=== PATIENT | male | born 1935 | race Caucasian/White ===

== ENCOUNTER 2017-04-28 11:20 | Emergency (ER) | payer MEDICARE ==
[~2017-04-28] VITALS: Ht 180.3 cm; Wt 79.4 kg
[~2017-04-28 11:20] MED LIST: ANTI DIARRHEAL; ASCO100065 PO; CITA20TA9 PO; CRESTOR10 MG PO; DONE10TA61 PO; METO25TA2 PO; OMEP40CA2 PO; POTA20TA12 PO; RIVA10TA PO
--- NOTE | 2017-04-28 11:56 | PHYS DOC ---
Past History Past Medical History: GERD, High Cholesterol, Hypertension, Other Past Surgical History: Other Smoking: Non-smoker Alcohol Use: Occasionally Drug Use: None Adult General Chief Complaint Chief Complaint: LACERATION/AVULSION HPI HPI 81-year-old male patient with history of mild dementia and pulmonary embolism on Xarelto had an accidental fall from a standing position at 3:30 AM and was going to the bathroom. Patient had a laceration of right side of his face that did not stop bleeding and after calling his primary care physician office recommended to come to the emergency room. Patient denies loss of consciousness and other injuries, nausea and vomiting, focal neuro deficit. Patient tolerated oral intake and ambulated without problem. Review of Systems Review of Systems Constitutional: Denies fever or chills [] Eyes: Denies change in visual acuity, redness, or eye pain [] HENT: Denies nasal congestion or sore throat [] Respiratory: Denies cough or shortness of breath [] Cardiovascular: No additional information not addressed in HPI [] GI: Denies abdominal pain, nausea, vomiting, bloody stools or diarrhea [] : Denies dysuria or hematuria [] Musculoskeletal: Denies back pain or joint pain [] Integument: Denies rash or skin lesions, reports laceration [] Neurologic: Denies headache, focal weakness or sensory changes [] Endocrine: Denies polyuria or polydipsia [] All other systems were reviewed and found to be within normal limits, except as documented in this note. Allergies Allergies Allergies Coded Allergies Type Severity Reaction Last Updated Verified No Known Drug Allergies 01/31/15 No Physical Exam Physical Exam Constitutional: Well nourished, mild distress, non-toxic appearance. [] HENT: Normocephalic, bilateral external ears normal, oropharynx moist, no oral exudates, nose normal, Y-shaped laceration in right side of face lateral side of forehead above eyebrow with mild active bleeding, mild raccoon eyes] Eyes: PERRLA, EOMI, conjunctiva normal, no discharge. [] Neck: Normal range of motion, no tenderness, supple, no stridor. [] Cardiovascular:Heart rate regular rhythm, no murmur [] Lungs & Thorax: Bilateral breath sounds clear to auscultation [ Abdomen: Bowel sounds normal, soft, no tenderness, no masses, no pulsatile masses. [] Skin: Warm, dry, no erythema, no rash. [] Back: No tenderness, no CVA tenderness. [] Extremities: No tenderness, no cyanosis, no clubbing, ROM intact, no edema. [] Neurologic: Alert and oriented X 3, normal motor function, normal sensory function, no focal deficits noted. [] Current Patient Data Vital Signs Vital Signs Date Time Temp Pulse Resp B/P (MAP) Pulse Ox O2 Delivery O2 Flow Rate FiO2 04/28/17 11:42 97.5 50 18 96 Room Air EKG EKG [] Radiology/Procedures Radiology/Procedures [] Course & Med Decision Making Course & Med Decision Making Pertinent Imaging studies reviewed. (See chart for details) Evaluation of patient in ER showed 81-year-old male patient with a fall several hours ago patient laceration with bleeding. Patient taking Xarelto. Facial laceration was treated with Dermabond and Steri-Strip with well controlled of bleeding. CT head and cervical spine did not show acute problem. Patient ambulated without problem. Patient instructed to follow up with his primary care physician. Dragon Disclaimer Dragon Disclaimer This electronic medical record was generated, in whole or in part, using a voice recognition dictation system. Departure Departure: Impression: Primary Impression: Facial laceration Additional Impressions: Fall at home Facial contusion Disposition: HOME, SELF-CARE (At 1245) Condition: IMPROVED Referrals: ROBERT AYALA MD (PCP) Patient Instructions: Head Injury, Adult, Tissue Adhesive Wound Care Additional Instructions: Follow-up with your primary care physician in 3-5 days Return to ER if not getting better Laceration Repair Lac Repair Indication: [Right forehead laceration] Procedure: The patient was placed in the appropriate position. After cleaning the wound tissue glue was applied with well controlled bleeding and closing the wound. The wound area was then dressed with steri strip Total repaired wound length: [3 cm]. Other Items: [OTHER ITEMS] The patient tolerated the procedure well. Complications: [none. Problem Qualifiers CYRIL JADE MD Apr 28, 2017 11:56
--- NOTE | 2017-04-28 12:41 | RAD ---
CT head and cervical spine without contrast 04/28/2017 Clinical indication: Fall. Comparison: CT head 01/31/2015 Technique: Multiple CT images of the head and cervical spine were obtained without contrast. RS Compliance Statement: One or more of the following individualized dose reduction techniques were utilized for this examination: 1. Automated exposure control 2. Adjustment of the mA and/or kV according to patient size 3. Use of iterative reconstruction technique Findings: Head: No acute intracranial hemorrhage or extra-axial fluid collection. No midline shift. There is mild prominence of the ventricles and subarachnoid spaces compatible with mild generalized cerebral and cerebellar atrophy. There is periventricular and deep white matter low attenuation. The basal cisterns are patent. The visualized mastoid air cells and paranasal sinuses are well aerated. Cervical spine: There is diffuse bony demineralization. There is normal cervical alignment with mild left convexity spinal curvature which may be positional. Vertebral body heights are maintained. No acute cervical spine fracture or traumatic malalignment identified. Moderate atlantodens arthrosis with osteophytic spurring. Calcified atheromatous disease at the carotid bulbs. There is a 1.0 cm hypodense nodule in the right lobe of the thyroid gland. There is multilevel cervical disc degeneration with disc space narrowing, endplate sclerosis and marginal osteophyte formation. In conjunction with uncovertebral and facet hypertrophy results in multilevel neural foraminal narrowing to a moderate degree on the right at C3-C4, moderate degree bilaterally at C5-C6 and moderate degree bilaterally at C6-C7. Right central posterior disc osteophyte complexes at C3-C4 and C5-C6 results in at least mild spinal canal narrowing. Impression: Head: 1. No acute intracranial hemorrhage. 2. Mild generalized cerebral and cerebellar atrophy. 3. Mild nonspecific white matter disease, likely related to chronic small vessel ischemic disease. Cervical spine: 1. No acute cervical spine fracture or subluxation. 2. Cervical spondylosis resulting in multilevel neural foraminal and spinal canal narrowing, as detailed above.
[2017-04-28 12:56] VITALS: BP 101/50
== END 2017-04-28 12:55 | disposition home or self-care (01) ==
LOC: ER 11:20
DX: S01.81XA Laceration without foreign body of other part of head, initial encounter (principal); E78.00 Pure hypercholesterolemia, unspecified; I10 Essential (primary) hypertension; K21.9 Gastro-esophageal reflux disease without esophagitis; F03.90 Unspecified dementia, unspecified severity, without behavioral disturbance, psychotic disturbance, mood disturbance, and anxiety; Z86.711 Personal history of pulmonary embolism; W19.XXXA Unspecified fall, initial encounter; Y93.01 Activity, walking, marching and hiking; Y99.8 Other external cause status; Y92.002 Bathroom of unspecified non-institutional (private) residence as the place of occurrence of the external cause
CPT/HCPCS: 12013; 70450; 72125; 99284-25

== ENCOUNTER 2017-05-07 21:43 | Emergency (ER) | payer MEDICARE ==
[~2017-05-07] VITALS: Ht 182.9 cm; Wt 81.6 kg
[2017-05-07 22:32] LABS: POTASSIUM ISTAT 4.4 mmol/L (3.5-5.0)
--- NOTE | 2017-05-07 22:39 | RAD ---
PQRS Compliance Statement: One or more of the following individualized dose reduction techniques were utilized for this examination: 1. Automated exposure control 2. Adjustment of the mA and/or kV according to patient size 3. Use of iterative reconstruction technique CT head and cervical spine without contrast 05/07/2017 10:14 PM INDICATION: Fall and hit right side of the head. On Xarelto with worsening headache. Upper neck pain. COMPARISON: CT head and cervical spine April 28, 2017 TECHNIQUE: Multiple axial CT images of the head were obtained from skull base through the vertex without intravenous contrast. Multiple axial CT images of the cervical spine were obtained without intravenous contrast. Coronal and sagittal reformats are provided. FINDINGS: Head: Ventricles, sulci and basal cisterns are mildly prominent compatible with age-related degenerative changes. Low-attenuation in the periventricular white matter is compatible with chronic small vessel ischemic changes. 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 There is no hydrocephalus. Villafuerte-white matter differentiation is normal. There is no acute intracranial hemorrhage. There is no mass, mass effect or midline shift. Posterior fossa is normal in appearance. Visualized portions of the orbits are normal. Minimal mucosal thickening of the left maxillary sinus is noted. Mastoid air cells are well aerated. Scalp and calvaria are normal. Cervical spine: Alignment of the cervical spine is normal. Skull base is intact. Craniocervical junction is normal in appearance. Atlantoaxial articulation is normal. Vertebral body heights are maintained without evidence for acute fracture. Degenerative changes are noted at the atlantoaxial articulation. There is disc height loss at all levels of the cervical spine, most prominent at C5-C6. There is osseous fusion of the facet joints at C2-C3 on the left. There is advanced facet arthropathy on the right at C4-C5 and C7-T1. There is advanced facet arthropathy on the left at C3-C4. There is moderate to advanced uncovertebral joint disease most prominent at C5-C6. There is a posterior disc osteophyte complex at C3-C4, asymmetric to the right with moderate right facet arthropathy resulting in severe right neuroforaminal stenosis and mild spinal canal stenosis. At C5-C6 and C6-C7, there is a posterior disc osteophyte complex with facet and uncovertebral joint arthropathy resulting in severe bilateral neuroforaminal stenosis and mild spinal canal stenosis. There is no prevertebral soft tissue swelling. There is a 9 mm nodule in the inferior right thyroid lobe. Visualized portions of the lung apices are normal without evidence for suspicious pulmonary nodule or infiltrate. IMPRESSION: 1. No acute intracranial hemorrhage. Mild cerebral parenchymal volume loss with low attenuation in the periventricular white matter compatible with chronic small vessel ischemic changes. 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 2. No acute fracture or malalignment of the cervical spine. Moderate cervical spondylosis is present, as detailed above. Findings are not significantly changed since prior examination. Electronically signed by: Anita Castellon MD (05/07/2017 10:35 PM) [facility]
--- NOTE | 2017-05-07 23:08 | PHYS DOC ---
General Chief Complaint: Neck Pain Stated Complaint: STIFF NECK FROM FALL Time Seen by MD: 21:52 Source: patient, family Exam Limitations: no limitations Problems: History of Present Illness Initial Comments Patient is an 82-year-old male brought to the ED by his and daughter for neck pain. Patient and family state that for the past 3 days he has had worsening neck pain and stiffness. The pain is described as severe and sharp, patient states that he has great difficulty with any range of motion at the neck or head. His primary pain complaints are at the OA junction and he's been having headaches intermittently associated with the neck pains today. He denies any focal neurologic deficits no new weakness vision changes or other asymmetry. Patient is on xarelto to chronically for prior PE. Patient was seen at this emergency department April 28 after a fall injury. At 3:30 in the morning the patient fell trying to go to the restroom and suffered a right sided facial laceration. CT of the head and cervical spine were normal at that time and the patient left the department ambulatory. The patient is normally ambulatory without assistive device but with the neck pain onset he has been using a walker. The patient has intermittent twinges of pain which cause him to wince and tear up, he is in obvious discomfort when the spasms occur. He moves very gingerly and slowly and on ED arrival after reviewing his history I advised the patient that CT head and cervical spine was indicated he and his family are in agreement. Patient's spouse states that she's been trying to reach his primary care physician as she wanted to get a muscle relaxer for him but has been unable to reach the patient's doctor. Timing/Duration: other Severity: severe Modifying Factors: worse with movement Associated Symptoms: headaches, other Allergies: Coded Allergies: No Known Drug Allergies (Unverified , 01/31/15) Past Medical History Medical History: other (GERD, hyperlipidemia, hypertension, PE, dementia, bladder cancer,) Surgical History: other (left hip, AAA) Family History Significant Family History: no pertinent family hx Social History Smoker: non-smoker Alcohol: none Drugs: none Review of Systems Constitutional: denies chills, denies diaphoresis, denies fever, denies malaise , denies weakness EENTM: denies eye pain, denies blurred vision, denies double vision, denies ear discharge, denies nose congestion, denies throat pain, denies throat swelling, denies mouth pain, denies mouth swelling Respiratory: denies cough, denies shortness of breath, denies wheezing Cardiovascular: denies chest pain, denies palpitations, denies syncope Gastrointestinal: denies abdominal pain, denies nausea, denies vomiting Musculoskeletal: see HPI Psychiatric/Neurological: see HPI Hematologic/Lymphatic: see HPI Physical Exam General Appearance: moderate distress (moves very slowly delicately and gingerly, has intermittent severe twinges of pain) Ear, Nose, Throat: hearing grossly normal, normal ENT inspection, normal pharynx Neck: other (trapezius muscle hypertonicity and tenderness left greater than right, left sided scalene and sternocleidomastoid muscle hypertonicity and tenderness as well. No midline or bony tenderness or palpable deformity/ malalignment. No swelling ecchymosis or palpable muscle deficit/defect) Respiratory: normal breath sounds, no respiratory distress Cardiovascular: normal peripheral pulses, regular rate, rhythm Back: no CVA tenderness, no vertebral tenderness Neurologic/Psychiatric: procedure writer II-XII nml as tested, no motor/sensory deficits, alert, normal mood/affect, oriented x 3 Skin: normal color, warm/dry Orders, Labs, Meds PATIENT: DAPHNE AMADO ACCOUNT: [id number] : 1935 LOCATION: ER AGE: 82 SEX: M EXAM STATUS: PRE ER ORD. PHYSICIAN: ROSEMARY FORD DO REASON: fall 04/28 head injury/xarelto, worsening SANTA/upper neck and OA marcin PROCEDURE: CT HEAD AND CERVICAL SPINE WO PQRS Compliance Statement: One or more of the following individualized dose reduction techniques were utilized for this examination: 1. Automated exposure control 2. Adjustment of the mA and/or kV according to patient size 3. Use of iterative reconstruction technique CT head and cervical spine without contrast 05/07/2017 10:14 PM INDICATION: Fall and hit right side of the head. On Xarelto with worsening headache. Upper neck pain. COMPARISON: CT head and cervical spine April 28, 2017 TECHNIQUE: Multiple axial CT images of the head were obtained from skull base through the vertex without intravenous contrast. Multiple axial CT images of the cervical spine were obtained without intravenous contrast. Coronal and sagittal reformats are provided. FINDINGS: Head: Ventricles, sulci and basal cisterns are mildly prominent compatible with age-related degenerative changes. Low-attenuation in the periventricular white matter is compatible with chronic small vessel ischemic changes. 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 There is no hydrocephalus. Villafuerte-white matter differentiation is normal. There is no acute intracranial hemorrhage. There is no mass, mass effect or midline shift. Posterior fossa is normal in appearance. Visualized portions of the orbits are normal. Minimal mucosal thickening of the left maxillary sinus is noted. Mastoid air cells are well aerated. Scalp and calvaria are normal. Cervical spine: Alignment of the cervical spine is normal. Skull base is intact. Craniocervical junction is normal in appearance. Atlantoaxial articulation is normal. Vertebral body heights are maintained without evidence for acute fracture. Degenerative changes are noted at the atlantoaxial articulation. There is disc height loss at all levels of the cervical spine, most prominent at C5-C6. There is osseous fusion of the facet joints at C2-C3 on the left. There is advanced facet arthropathy on the right at C4-C5 and C7-T1. There is advanced facet arthropathy on the left at C3-C4. There is moderate to advanced uncovertebral joint disease most prominent at C5-C6. There is a posterior disc osteophyte complex at C3-C4, asymmetric to the right with moderate right facet arthropathy resulting in severe right neuroforaminal stenosis and mild spinal canal stenosis. At C5-C6 and C6-C7, there is a posterior disc osteophyte complex with facet and uncovertebral joint arthropathy resulting in severe bilateral neuroforaminal stenosis and mild spinal canal stenosis. There is no prevertebral soft tissue swelling. There is a 9 mm nodule in the inferior right thyroid lobe. Visualized portions of the lung apices are normal without evidence for suspicious pulmonary nodule or infiltrate. IMPRESSION: 1. No acute intracranial hemorrhage. Mild cerebral parenchymal volume loss with low attenuation in the periventricular white matter compatible with chronic small vessel ischemic changes. 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 2. No acute fracture or malalignment of the cervical spine. Moderate cervical spondylosis is present, as detailed above. Findings are not significantly changed since prior examination. Electronically signed by: Irene Burks MD (05/07/2017 10:35 PM) [facility] DICTATED AND SIGNED BY: IRENE BURKS MD DATE: 05/07/172227 CC: ROBERT PATEL MD; ROSEMARY FORD DO ~ I-STAT BMP: Unremarkable, no electrolyte abnormality or hypovolemia noted which could contribute to muscle spasm. I discussed findings with the patient, his spouse and his daughter who is actually an RN. I discussed the need for symptomatic control, such medications would likely cause sedation and alter the patient's balance. I discussed the need for symptom control while preserving the patient's ability to avoid a fall due to his anticoagulation. After an extended discussion with the patient, his spouse, and his daughter it is agreed that the patient will receive 5 mg Valium by mouth here in the emergency department. He agrees to request assistance with any ambulation tonight and his family will keep a close eye on him. They will follow-up tomorrow morning with his primary care physician for recheck and further evaluation and treatment as necessary. I discussed signs and symptoms to monitor as well as indications for urgent return to the department. I discussed [id number] prescription medications as well as sedation and ambulation precautions. Their questions were answered to their satisfaction and he expressed agreement and understanding with the treatment plan. Departure Time of Disposition: 23:06 Disposition: 01 HOME, SELF-CARE Diagnosis: torticollis Condition: GOOD Patient Instructions: Torticollis, Acute Additional Instructions: Please review the patient education materials given by ED staff. Sedation precautions: Use your assistive device and request assistance with ambulation until morning. [id number] Tylenol as needed. Heating pad to affected area 15 minutes only 4-6 times daily followed by gentle stretching. Take care not to fall asleep on the heating pad as you will get burned. Follow-up with Dr. Patel's office tomorrow for recheck and further treatment or interventions as necessary. Return to ED with new or changing symptoms. ROSEMARY FORD DO May 07, 2017 23:08
[2017-05-07 23:15] VITALS: BP 127/68
[2017-05-07] MEDS ORDERED: diazePAM 5 MG TABLET PO ONE (23:30)
== END 2017-05-07 23:15 | disposition home or self-care (01) ==
LOC: ER 21:43
DX: M43.6 Torticollis (principal); I10 Essential (primary) hypertension; E78.5 Hyperlipidemia, unspecified; K21.9 Gastro-esophageal reflux disease without esophagitis; F03.90 Unspecified dementia, unspecified severity, without behavioral disturbance, psychotic disturbance, mood disturbance, and anxiety; Z86.711 Personal history of pulmonary embolism; Z79.01 Long term (current) use of anticoagulants
CPT/HCPCS: 36415; 70450; 72125; 80047; 85014; 85018; 99284-25

== ENCOUNTER → 2020-08-02 | Outpatient (CLI) | payer MEDICARE ==
--- NOTE | 2020-08-02 14:25 | RAD ---
EXAM: Right elbow, 3 views. HISTORY: Radial head fracture. COMPARISON: 06/26/2020 FINDINGS: 3 views of the right elbow are obtained. There is a right elbow effusion. There is severe d egenerative spurring involving the distal humerus and proximal ulna and radial head due to osteoarthr itis. This limits evaluation for a nondisplaced fracture. There are small stable ossicles adjacent to the medial and lateral epicondyles. IMPRESSION: Moderate right elbow osteoarthritis. There is spurring involving the radial head which l imits evaluation for a nondisplaced fracture. Given the presence of an elbow effusion, the possibilit y of an occult fracture is not excluded. This can be better assessed with a CT or MRI. Electronically signed by: Estella Carmen MD (08/02/2020 2:22 PM) [id number]
--- NOTE | 2020-08-02 14:27 | RAD ---
EXAM: Right hip, 2 views. HISTORY: Fracture fixation. COMPARISON: 06/26/2020 FINDINGS: A frontal view of the pelvis and frog-leg view the right hip are obtained. There is interna l fixation of the right femoral intertrochanteric fracture. There has been slight interval increase i n callus formation along the fracture lines. There is also internal fixation of a healed proximal lef t femoral fracture. There is decreased bilateral femoral head neck offset likely due to chronic hip i mpingement. There is marginal osteophyte and femoral head spurring. There is partial visualization of an aortobiiliac endograft. There is degenerative change involving the lower lumbar spine. There is a large amount of stool within the rectal vault. IMPRESSION: 1. Slight interval healing of a right femoral intertrochanteric fracture status post internal fixatio n. 2. Healed left proximal femoral fracture status post internal fixation. 3. Mild bilateral hip osteoarthritis and findings consistent with chronic lateral hip impingement. Electronically signed by: Estella Carmen MD (08/02/2020 2:24 PM) [id number]
== END ==
LOC: RAD 13:39
PROVIDERS: ATTEND Physician Assistant
DX: M19.021 Primary osteoarthritis, right elbow (principal); M16.0 Bilateral primary osteoarthritis of hip
CPT/HCPCS: 73070; 73502

== ENCOUNTER → 2020-09-13 | Outpatient (CLI) | payer MEDICARE ==
[~2020-09-13] MED LIST changes: +ASCO500C PO; +CHOL500021 PO; +DICL20GE TP; +HYDR-2759 PO; +MEMA10TA PO; +MULT-326 PO; +[UNRECOGNIZED DRUG - CODE] PO
--- NOTE | 2020-09-13 14:44 | RAD ---
Study: XR ELBOW_RIGHT Indication: Right elbow pain. Medial swelling. Comparison: 08/02/2020 Findings: No newly seen callus to suggest healing of a previously occult fracture. Curvilinear mineralization a t the lateral humeral condyle is unchanged. There is again osseous remodeling at the common flexor mo re so than common extensor origins. Moderate arthrosis with scattered osteophyte formation. Redemonst ration of an elbow joint effusion which appears similar in size when comparing the extent of anterior humeral fat pad elevation though the effusion appears slightly larger along the dorsum of the distal humerus. Impression: 1. No acute fracture or radiographic evidence for healing of a subacute fracture. 2. Moderate arthrosis. 3. Enthesopathy at the common flexor more so than extensor origins. Correlate for symptoms of epicond ylitis. 4. Persistent and possibly slightly larger elbow joint effusion. Electronically signed by: KIRSTIN WILLAMS MD (09/13/2020 2:42 PM) [facility]
--- NOTE | 2020-09-13 14:47 | RAD ---
Study: XR HIP (WITH OR WITHOUT PELVIS) RIGHT 1 VIEW Indication: Post procedural state. Comparison: 08/02/2020 Findings: Cephalomedullary nailing on the right and left. Single lag screw fixation on the right and dual lag s crew fixation on the left. The hardware is intact, unchanged in positioning and without evidence for loosening. Increasing callus surrounding the right intertrochanteric femur fracture. Unchanged degree of heterotopic ossification around the proximal left femur. Osteopenia. Endovascular stenting. Possible ankylosis across the SI joints but not fully characterize d on this exam. Impression: Intact and well fixated right and left femur surgical hardware. Increasing callus around the intertro chanteric femur fracture on the right. No newly seen fracture noting osteopenia. Electronically signed by: KIRSTIN WILLAMS MD (09/13/2020 2:45 PM) [facility]
== END ==
LOC: RAD 13:12
PROVIDERS: ATTEND Physician Assistant
DX: S72.141A Displaced intertrochanteric fracture of right femur, initial encounter for closed fracture (principal); M19.021 Primary osteoarthritis, right elbow; M77.8 Other enthesopathies, not elsewhere classified; X58.XXXA Exposure to other specified factors, initial encounter; Y93.89 Activity, other specified; Y92.89 Other specified places as the place of occurrence of the external cause; Y99.8 Other external cause status; Z98.890 Other specified postprocedural states
CPT/HCPCS: 73070; 73501

== ENCOUNTER 2020-09-15 13:57 | Emergency (ER) | payer MEDICARE ==
[~2020-09-15] VITALS: Ht 182.9 cm; Wt 72.6 kg
[~2020-09-15 13:57] MED LIST changes: -ASCO500C PO; -CHOL500021 PO; -DICL20GE TP; -HYDR-2759 PO; -MEMA10TA PO; -MULT-326 PO; -[UNRECOGNIZED DRUG - CODE] PO
--- NOTE | 2020-09-15 14:19 | PHYS DOC ---
Past History Past Medical History: GERD, High Cholesterol, Hypertension, Other Past Surgical History: Other Smoking: Non-smoker Alcohol Use: Occasionally Drug Use: None Adult General Chief Complaint Chief Complaint: MECHANICAL FALL HPI HPI Patient is an 85-year-old male presenting from care home for unwitnessed fall. I received signout by patient's care home physician. Patient with dementia and also a DNR CODE STATUS had an unwitnessed fall yesterday evening. He has been hypoxic ever since but in no acute distress. Patient reevaluated numerous times since fall, he is unable to describe how he fell but does admit that he has pain to right hip and femur. 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 See HPI for per tinent positives and negative responses, other wolf all other systems are negative, non-pertinent or non-contributory Allergies Allergies Allergies Coded Allergies Type Severity Reaction Last Updated Verified No Known Drug Allergies 01/31/15 No Physical Exam Physical Exam Constitutional: Pt is oriented to person, place, and time. Pt appears well-developed and well- nourished. HEENT: Head: Normocephalic and atraumatic. TMs clear, no hemotympanum Conjunctivae and EOM are normal. Pupils are equal, round, and reactive to light. Oropharynx is clear and moist. No hematomas or lacerations or abrasions to face or scalp OP clear, no blood, no malocclusion, dentition intact Nares clear, no nasal septal hematoma Midface stable Neck: C-spine midline nontender, no step-offs Cardiovascular: Normal rate, regular rhythm and normal heart sounds. Pulmonary/Chest: Effort normal and breath sounds normal. No respiratory distress. No wheezes. CTA bilaterally Abdominal: Soft. Bowel sounds are normal. Pt exhibits no distension. There is no tenderness. Musculoskeletal: No bony tenderness to extremities, no deformities, full ROM extremities Chest wall stable Pelvis stable and non-tender No vertebral TTP and spine without stepoffs Neurological: Pt is alert and oriented to person, place, and time. Moving all extremities willfully, able to wiggle all fingers and toes Alert and oriented x 3 Motor and sensory function intact Cranial nerves II to XII intact Skin: Skin is warm and dry. No abrasions, no lacerations Psychiatric: Behavior is appropriate for situation Current Patient Data Vital Signs Vital Signs Date Time Temp Pulse Resp B/P (MAP) Pulse Ox O2 Delivery O2 Flow Rate FiO2 09/15/20 14:33 98.3 58 20 119/62 (81) 93 Room Air 4.0 Vital Signs Date Time Temp Pulse Resp B/P (MAP) Pulse Ox O2 Delivery O2 Flow Rate FiO2 09/15/20 14:33 98.3 58 20 119/62 (81) 93 Room Air 4.0 Lab Results Laboratory Tests Test 09/15/20 14:22 White Blood Count 11.8 x10^3/uL Red Blood Count 4.21 x10^6/uL Hemoglobin 13.5 g/dL Hematocrit 40.6 % Mean Corpuscular Volume 96 fL Mean Corpuscular Hemoglobin 32 pg Mean Corpuscular Hemoglobin Concent 33 g/dL Red Cell Distribution Width 14.5 % Platelet Count 175 x10^3/uL Neutrophils (%) (Auto) 77 % Lymphocytes (%) (Auto) 11 % Monocytes (%) (Auto) 10 % Eosinophils (%) (Auto) 2 % Basophils (%) (Auto) 1 % Neutrophils # (Auto) 9.1 x10^3uL Lymphocytes # (Auto) 1.2 x10^3/uL Monocytes # (Auto) 1.1 x10^3/uL Eosinophils # (Auto) 0.3 x10^3/uL Basophils # (Auto) 0.1 x10^3/uL Sodium Level 141 mmol/L Potassium Level 4.2 mmol/L Chloride Level 106 mmol/L Carbon Dioxide Level 26 mmol/L Anion Gap 9 Blood Urea Nitrogen 16 mg/dL Creatinine 1.1 mg/dL Estimated GFR (Cockcroft-Gault) 63.5 Glucose Level 120 mg/dL Calcium Level 8.7 mg/dL Troponin I Quantitative < 0.017 ng/mL EKG EKG EKG ordered and interpreted by myself at 1438 hrs. as sinus rhythm at 63 bpm, prolonged SC 244, prolonged QRS at 128, no axis deviation, no acute ischemic findings, no STEMI Radiology/Procedures Radiology/Procedures CT HEAD AND C-SPINE WO Date: 09/15/2020 2:55 PM Clinical Indication: Reason: unwitnessed fall on xarelto / Spl. Instructions: / History: Comparison: 05/07/2017. Technique: 5 mm axial tomographic images were obtained of the head without contrast. These were viewed on brain and bone windows. Noncontrast CT of the cervical spine was performed. Sagittal and coronal reformats were performed and evaluated. One or more of the following dose reduction techniques were utilized: Automated exposure control (AEC), Adjustment of mA and/or kV according to patient size, Use of iterative reconstruction technique such as ASiR, CT scan done according to ALARA and image gently/image wisely HEAD FINDINGS: Moderate generalized cerebral and cerebellar volume loss. Moderate nonspecific periventricular hypoattenuation, most commonly seen with chronic small vessel ischemic disease. No intra- or extra-axial mass or fluid collection. No acute hemorrhage. The ventricles are normal in size, shape, and morphology. The hawley-white matter junction is normal. The basilar cisterns are patent. The visualized paranasal sinuses are normal. The visualized portions of the orbits and globes are normal. The mastoid air cells are clear. No aggressive osseous lesion or fracture. CERVICAL SPINE FINDINGS: The cervical spine is normally aligned. No acute fracture. No aggressive lytic or blastic osseous lesions. Moderate multilevel degenerative disc space height loss. Multilevel mild spinal canal stenosis secondary to disc protrusions and marginal osteophytes. Multilevel moderate to severe neuroforaminal narrowing secondary to uncovertebral arthrosis. Multilevel mild and moderate facet arthrosis. The thyroid gland is normal. No cervical lymphadenopathy. Bilateral carotid atherosclerosis. The visualized aerodigestive tract is normal. The visualized portions of the lungs are clear. IMPRESSION: 1. No acute intracranial process. 2. No acute cervical spine fracture. Electronically signed by: Eddie Gonzalez MD (09/15/2020 3:39 PM) [id number] /////////////// CT CHEST WITH CONTRAST, PULMONARY ANGIOGRAM History: Reason: hypoxic, history of PEs Comparison: CT chest with contrast July 25, 2013. Technique: Helical CT of the chest was performed after the administration of 95 cc of Omnipaque 350 intravenous contrast according to PE protocol. Axial and coronal reconstructions were obtained. 3-D MIP images were constructed to better evaluate the pulmonary arteries. Findings: Pulmonary arteries are adequately opacified. There is no evidence of pulmonary embolism. 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 There is coronary artery disease. The thyroid is symmetric. Calcified subcarinal and right hilar lymph nodes. No adenopathy is seen in the chest. The cardiac size is normal, no pericardial effusion. There is no pleural abnormality. There is respiratory motion artifact. The central airways are patent. There is moderate bilateral dependent atelectasis. The visualized upper abdomen is unremarkable. There is chronic appearing compression fracture at the superior endplate of T2. Small sclerotic lesion of the right lateral fifth rib, nonspecific, image 90. IMPRESSION: 1. There is no pulmonary embolus. 2. Moderate bilateral atelectasis. 3. Aneurysm of the ascending thoracic aorta. Electronically signed by: Reji Harrington MD (09/15/2020 3:44 PM) [facility] ///////////////// Exam: Right hip 2 views INDICATION: Unwitnessed fall with right hip and femur pain TECHNIQUE: Frontal view of the pelvis with frog-leg lateral views of the right hip Comparisons: None FINDINGS: There is diffuse osteopenia. Chronic appearing fracture of the right hip joint. No acute fracture is identified. Soft tissues are unremarkable. IMPRESSION: Diffuse osteopenia without acute fracture seen. Chronic fracture at the right hip joint. If the patient is acutely unable to bear weight CT for further evaluation would be recommended. Electronically signed by: Ramila Ordoñez MD (09/15/2020 4:11 PM) [facility] //////////////// XR KNEE 3 VIEWS, bilateral Clinical Indication: Reason: unwitnessed fall / Spl. Instructions: patient unable to tolerate obl rt view, did not get, ER notified Comparison: None. Findings: Right: Lateral and AP views. Patella is in anatomic position. There is no obvious joint effusion. Arterial calcifications are seen. There is moderate medial compartment narrowing. No acute fracture is identified. Tricompartmental marginal osteoph ytes. No soft tissue swelling is seen. Left: 3 views. Patella in anatomic position. There is moderate medial compartment narrowing. Mild lateral compartment narrowing. Tricompartmental marginal osteophytes. No joint effusion is seen. Arterial calcifications. No soft tissue swelling is seen. No acute fracture. IMPRESSION: 1. No acute fracture. 2. Moderate bilateral arthropathy. Electronically signed by: Reji Harrington MD (09/15/2020 4:32 PM) [facility] /////////////////// AP chest x-ray HISTORY: Unwitnessed fall. COMPARISON: CT chest September 15, 2020. FINDINGS: Heart size stable. Tortuosity and aneurysmal enlargement of the ascend ing aorta and aortic arch is stable. Ossified granulomas in the chest again demonstrated. No pneumothorax. No pleural effusions. Mild basilar discoid atelectasis is stable. Bones are unremarkable IMPRESSION: No acute process. Mild bibasilar discoid atelectasis is stable. Tortuosity and aneurysmal enlargement of the thoracic aorta is radiographically stable to the prior study. Electronically signed by: Eamon Ortega MD (09/15/2020 4:28 PM) [id number] Heart Score C/O Chest Pain: No HEART Score for Chest Pain: HEART Score for Chest Pain Response (Comments) Value History Slighlty/Non-Suspicious 0 ECG Nonspecific Repolarizatio 1 Age > 65 2 Risk Factors >3 Risk Factors or Hx CAD 2 Troponin < Normal Limit 0 Total 5 Risk Factors: Risk Factors: DM, Current or recent (<one month) smoker, HTN, HLP, family history of CAD, obesity. Risk Scores: Risk Factors: DM, Current or recent (<one month) smoker, HTN, HLP, family history of CAD, obesity. Course & Med Decision Making Course & Med Decision Making Discussed with the patient all findings and diagnostic testing. I discussed most likely diagnosis of likely mechanical fall in patient with dementia. Also discussed patient's hypoxia due to atelectasis in fact that patient spends most of his time in supine or reclined position. I stressed need for close outpatient follow-up to review today's ER visit. I contacted patient's primary care physician and reviewed case, patient will be returning to care home where he can utilize oxygen another resources such as physical therapy and assistance to get up to chair and other pulmonary hygiene etc. Also disclosed that finding of right hip is chronic. PCP was amenable for ER departure with outpatient follow- up. Strict return precautions were also discussed at length with good understanding by patient's . Patient's voiced understanding and agreement with the plan. Patient's knows to come back for repeat evaluation if concerning signs or symptoms present prior to outpatient follow- up. Hemodynamically stable, able to transfer with assistance which is baseline for patient and well-appearing at time of disposition. Dragon Disclaimer Dragon Disclaimer This electronic medical record was generated, in whole or in part, using a voice recognition dictation system. Departure Departure: Impression: Primary Impression: Fall Additional Impressions: Hypoxia Dementia Disposition: HOME / SELF CARE / HOMELESS Condition: STABLE Referrals: ROBERT AYALA MD (PCP) Additional Instructions: As discussed prior to ER departure, your vital signs, physical examination and comprehensive ER work-up was nonconcerning for any emergent or surgical issues. Your low oxygen levels are likely due to physical deconditioning and atelectasis or low lung volumes. You need to sit up at bedside in an upright position as much as tolerated and participate in physical therapy, continued supplemental oxygen via nasal cannula might be necessary. There is no obvious cause for your fall, there were no acute bony abnormalities or bleeds. I did disclose chronic finding of right hip that your primary care physician knows about, no need for acute/emergent/surgical fixation at present. I called your primary care physician and reviewed ER visit today, we are all in agreement for discharge home for continued care and outpatient follow-up this upcoming week for repeat evaluation. If any concerning signs or symptoms present prior to outpatient follow-up please do not hesitate to come back for repeat evaluation. It is a pleasure to take care of you and I wish you the best going forward Problem Qualifiers JAVI POST DO Sep 15, 2020 14:19
[2020-09-15 14:44] LABS: BASO # 0.1 x10^3/uL (0.0-0.2); BASO % 1 % (0-3); EOS # 0.3 x10^3/uL (0.0-0.7); EOS % 2 % (0-3); HEMATOCRIT 40.6 % (39.0-53.0); HEMOGLOBIN 13.5 g/dL (13.0-17.5); LYMPH # 1.2 x10^3/uL (1.0-4.8); LYMPH % 11 % (24-48); MEAN CORPUSCULAR HEMOGLOBIN 32 pg (25-35); MEAN CORPUSCULAR HGB CONC 33 g/dL (31-37); MEAN CORPUSCULAR VOLUME 96 fL (79-100); MONO # 1.1 x10^3/uL (0.0-1.1); MONO % 10 % (0-9); NEUT # 9.1 x10^3uL (1.8-7.7); NEUT % 77 % (31-73); PLATELET COUNT 175 x10^3/uL (140-400); RED BLOOD COUNT 4.21 x10^6/uL (4.30-5.70); RED CELL DISTRIBUTION WIDTH 14.5 % (11.5-14.5); WHITE BLOOD COUNT 11.8 x10^3/uL (4.0-11.0)
[2020-09-15 14:54] LABS: CALCIUM 8.7 mg/dL (8.5-10.1); CREATININE 1.1 mg/dL (0.7-1.3); GFR 63.5; POTASSIUM 4.2 mmol/L (3.5-5.1)
--- NOTE | 2020-09-15 15:22 | EKG ---
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
--- NOTE | 2020-09-15 15:42 | RAD ---
CT HEAD AND C-SPINE WO Date: 09/15/2020 2:55 PM Clinical Indication: Reason: unwitnessed fall on xarelto / Spl. Instructions: / History: Comparison: 05/07/2017. Technique: 5 mm axial tomographic images were obtained of the head without contrast. These were view ed on brain and bone windows. Noncontrast CT of the cervical spine was performed. Sagittal and van l reformats were performed and evaluated. One or more of the following dose reduction techniques were utilized: Automated exposure control (AEC), Adjustment of mA and/or kV according to patient size, Us e of iterative reconstruction technique such as ASiR, CT scan done according to ALARA and image gentl y/image wisely HEAD FINDINGS: Moderate generalized cerebral and cerebellar volume loss. Moderate nonspecific periventricular hypoat tenuation, most commonly seen with chronic small vessel ischemic disease. No intra- or extra-axial mass or fluid collection. No acute hemorrhage. The ventricles are normal in size, shape, and morphology. The hawley-white matter junction is normal. The basilar cisterns are paten t. The visualized paranasal sinuses are normal. The visualized portions of the orbits and globes are no rmal. The mastoid air cells are clear. No aggressive osseous lesion or fracture. CERVICAL SPINE FINDINGS: The cervical spine is normally aligned. No acute fracture. No aggressive lytic or blastic osseous les ions. Moderate multilevel degenerative disc space height loss. Multilevel mild spinal canal stenosis second italo to disc protrusions and marginal osteophytes. Multilevel moderate to severe neuroforaminal narrow ing secondary to uncovertebral arthrosis. Multilevel mild and moderate facet arthrosis. The thyroid gland is normal. No cervical lymphadenopathy. Bilateral carotid atherosclerosis. The visu alized aerodigestive tract is normal. The visualized portions of the lungs are clear. IMPRESSION: 1. No acute intracranial process. 2. No acute cervical spine fracture. Electronically signed by: Eddie Gonzalez MD (09/15/2020 3:39 PM) [id number]
--- NOTE | 2020-09-15 15:47 | RAD ---
PQRS Compliance Statement: One or more of the following individualized dose reduction techniques were utilized for this examinat ion: 1. Automated exposure control 2. Adjustment of the mA and/or kV according to patient size 3. Use of iterative reconstruction technique CT CHEST WITH CONTRAST, PULMONARY ANGIOGRAM History: Reason: hypoxic, history of PEs Comparison: CT chest with contrast July 25, 2013. Technique: Helical CT of the chest was performed after the administration of 95 cc of Omnipaque 350 intravenous contrast according to PE protocol. Axial and coronal reconstructions were obtained. 3-D MIP images were constructed to better evaluate the pulmonary arteries. Findings: Pulmonary arteries are adequately opacified. There is no evidence of pulmonary embolism. 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 There is coronary artery disea se. The thyroid is symmetric. Calcified subcarinal and right hilar lymph nodes. No adenopathy is seen in the chest. The cardiac size is normal, no pericardial effusion. There is no pleural abnormality. There is respiratory motion artifact. The central airways are patent . There is moderate bilateral dependent atelectasis. The visualized upper abdomen is unremarkable. There is chronic appearing compression fracture at the superior endplate of T2. Small sclerotic lesio n of the right lateral fifth rib, nonspecific, image 90. IMPRESSION: 1. There is no pulmonary embolus. 2. Moderate bilateral atelectasis. 3. Aneurysm of the ascending thoracic aorta. Electronically signed by: Reji Harrington MD (09/15/2020 3:44 PM) [facility]
[2020-09-15 16:04] VITALS: BP 117/57
--- NOTE | 2020-09-15 16:14 | RAD ---
Exam: Right hip 2 views INDICATION: Unwitnessed fall with right hip and femur pain TECHNIQUE: Frontal view of the pelvis with frog-leg lateral views of the right hip Comparisons: None FINDINGS: There is diffuse osteopenia. Chronic appearing fracture of the right hip joint. No acute fracture is identified. Soft tissues are unremarkable. IMPRESSION: Diffuse osteopenia without acute fracture seen. Chronic fracture at the right hip joint. If the patie nt is acutely unable to bear weight CT for further evaluation would be recommended. Electronically signed by: Ramila Ordoñez MD (09/15/2020 4:11 PM) ROWENA
--- NOTE | 2020-09-15 16:31 | RAD ---
AP chest x-ray HISTORY: Unwitnessed fall. COMPARISON: CT chest September 15, 2020. FINDINGS: Heart size stable. Tortuosity and aneurysmal enlargement of the ascending aorta and aortic arch is stable. Ossified granulomas in the chest again demonstrated. No pneumothorax. No pleural effu sions. Mild basilar discoid atelectasis is stable. Bones are unremarkable IMPRESSION: No acute process. Mild bibasilar discoid atelectasis is stable. Tortuosity and aneurysmal enlargement of the thoracic aorta is radiographically stable to the prior study. Electronically signed by: Eamon Ortega MD (09/15/2020 4:28 PM) [id number]
--- NOTE | 2020-09-15 16:34 | RAD ---
XR KNEE 3 VIEWS, bilateral Clinical Indication: Reason: unwitnessed fall / Spl. Instructions: patient unable to tolerate obl rt view, did not get, ER notified Comparison: None. Findings: Right: Lateral and AP views. Patella is in anatomic position. There is no obvious joint effusion. Arterial c alcifications are seen. There is moderate medial compartment narrowing. No acute fracture is identifi ed. Tricompartmental marginal osteophytes. No soft tissue swelling is seen. Left: 3 views. Patella in anatomic position. There is moderate medial compartment narrowing. Mild lateral c ompartment narrowing. Tricompartmental marginal osteophytes. No joint effusion is seen. Arterial calc ifications. No soft tissue swelling is seen. No acute fracture. IMPRESSION: 1. No acute fracture. 2. Moderate bilateral arthropathy. Electronically signed by: Reji Harrington MD (09/15/2020 4:32 PM) [facility]
[2020-09-16] MEDS ORDERED: MULT-326 PO (16:36)
[2020-09-16] MEDS ORDERED: DICL20GE TP (16:36)
[2020-09-16] MEDS ORDERED: MEMA10TA PO (16:36)
[2020-09-16] MEDS ORDERED: CHOL500021 PO (16:36)
[2020-09-16] MEDS ORDERED: HYDR-2759 PO (16:36)
[2020-09-16] MEDS ORDERED: ASCO500C PO (16:36)
[2020-09-16] MEDS ORDERED: [UNRECOGNIZED DRUG - CODE] PO (16:36)
== END 2020-09-15 17:35 | disposition home or self-care (01) ==
LOC: ER 13:57
DX: F03.90 Unspecified dementia, unspecified severity, without behavioral disturbance, psychotic disturbance, mood disturbance, and anxiety (principal); R09.02 Hypoxemia; K21.9 Gastro-esophageal reflux disease without esophagitis; E78.5 Hyperlipidemia, unspecified; I10 Essential (primary) hypertension; M25.552 Pain in left hip; W18.39XA Other fall on same level, initial encounter; Y93.89 Activity, other specified; Y92.89 Other specified places as the place of occurrence of the external cause; Y99.8 Other external cause status
CPT/HCPCS: 36415; 70450; 71045; 71275; 72125; 73502; 73562; 80048; 84484; 85025; 93005; 99285-25

== ENCOUNTER 2020-09-16 11:54 | Inpatient (IN) | payer MEDICARE ==
[~2020-09-16] VITALS: Ht 182.9 cm; Wt 71.5 kg
--- NOTE | 2020-09-16 12:02 | PHYS DOC ---
Past History Past Medical History: Anxiety, Dementia Past Surgical History: Hip Replacement Smoking: Non-smoker Alcohol Use: None Drug Use: None Adult General Chief Complaint Chief Complaint: CHEST PAIN HPI HPI Patient is a 85yo male presenting from [place] for chest pain. He was seen at our facility yesterday by myself after suffering a fall the night prior and being short of air ever since. He had extensive workup showing no bony abnormalities and/or PE with diagnoses of contusion and atelectasis from being sedentary and supine a lot at his ID. He was sent back to ID with instructions to be on supplemental O2 with close outpatient follow-up. Today, patient with dementia was found on bathroom commode and voiced having chest pain when bearing down. He was off hisoxygen and found to be 88% and so, EMS was contacted to transport patient to our facility for evaluation. On arrival to ER, patient denies any pain, just chronic back pain Review of Systems Review of Systems Fourteen body systems of review of systems have been reviewed. See HPI for pertinent positives and negative responses, other wolf all other systems are negative, non-pertinent or non-contributory Allergies Allergies Allergies Coded Allergies Type Severity Reaction Last Updated Verified No Known Drug Allergies 01/31/15 No Physical Exam Physical Exam Constitutional: Well developed, well nourished, no acute distress, non-toxic appearance. HENT: Normocephalic, atraumatic, bilateral external ears normal, oropharynx moist, no oral exudates, nose normal. Eyes: PERRLA, EOMI, conjunctiva normal, no discharge. Neck: Normal range of motion, no tenderness, supple, no stridor. Cardiovascular: Heart rate regular, sinus rhythm, no murmurs rubs or gallops Lungs & Thorax: Bilateral breath sounds clear to auscultation Abdomen: Bowel sounds normal, soft, no tenderness, no masses, no pulsatile masses. Nonsurgical abdomen, no peritoneal signs Skin: Warm, dry, no erythema, no rash. Back: No tenderness, no CVA tenderness. Extremities: No tenderness, no cyanosis, no clubbing, ROM intact, no edema. Neurologic: Alert and oriented X 3, grossly normal motor & sensory function, no focal deficits noted. Psychologic: Affect normal, judgement normal, mood normal. Current Patient Data Vital Signs Vital Signs Date Time Temp Pulse Resp B/P (MAP) Pulse Ox O2 Delivery O2 Flow Rate FiO2 6/13/21 13:14 77 172/85 Vital Signs Date Time Temp Pulse Resp B/P (MAP) Pulse Ox O2 Delivery O2 Flow Rate FiO2 09/16/20 13:14 77 172/85 Lab Results Laboratory Tests Test 09/16/20 13:22 09/16/20 17:05 09/16/20 20:15 White Blood Count 11.0 x10^3/uL Red Blood Count 4.24 x10^6/uL Hemoglobin 13.5 g/dL Hematocrit 40.4 % Mean Corpuscular Volume 95 fL Mean Corpuscular Hemoglobin 32 pg Mean Corpuscular Hemoglobin Concent 34 g/dL Red Cell Distribution Width 14.1 % Platelet Count 130 x10^3/uL Neutrophils (%) (Auto) 81 % Lymphocytes (%) (Auto) 7 % Monocytes (%) (Auto) 11 % Eosinophils (%) (Auto) 1 % Basophils (%) (Auto) 0 % Neutrophils # (Auto) 9.0 x10^3uL Lymphocytes # (Auto) 0.7 x10^3/uL Monocytes # (Auto) 1.2 x10^3/uL Eosinophils # (Auto) 0.1 x10^3/uL Basophils # (Auto) 0.0 x10^3/uL Sodium Level 141 mmol/L Potassium Level 3.9 mmol/L Chloride Level 105 mmol/L Carbon Dioxide Level 25 mmol/L Anion Gap 11 Blood Urea Nitrogen 12 mg/dL Creatinine 1.0 mg/dL Estimated GFR (Cockcroft-Gault) 70.8 BUN/Creatinine Ratio 12 Glucose Level 93 mg/dL Calcium Level 8.3 mg/dL Total Bilirubin 1.1 mg/dL Aspartate Amino Transf (AST/SGOT) 29 U/L Alanine Aminotransferase (ALT/SGPT) 34 U/L Alkaline Phosphatase 117 U/L Troponin I Quantitative 0.026 ng/mL 0.037 ng/mL 0.042 ng/mL Total Protein 6.3 g/dL Albumin 3.2 g/dL Albumin/Globulin Ratio 1.0 Current Medications Medications (Trade) Dose Ordered Sig/Tran Route PRN Reason Start Time Stop Time Status Last Admin Dose Admin Nitroglycerin (Nitrostat) 0.4 mg PRN Q5MIN PRN SL CHEST PAIN 09/16/20 13:15 09/16/20 13:14 Fentanyl Citrate (Fentanyl 2ml Vial) 50 mcg 1X ONCE IVP 09/16/20 13:45 09/16/20 13:46 DC 09/16/20 13:56 EKG EKG EKG ordered and interpreted by myself at 1210 hrs. as sinus rhythm at 83 bpm, prolonged [place] interval at 212, prolonged QRS at 148, prolonged QTC at 493 otherwise unremarkable intervals, no acute ischemic findings, no STEMI Repeat EKG after patient voiced deep substernal chest pain obtained and interpreted by myself at 1323 hrs. as sinus rhythm at 80 bpm, prolonged [place] 224, prolonged QRS at 140, prolonged QTC at 477, no axis deviation, no STEMI EKG as above compared to EKG obtained 09/15/2020 when seen here at our ER and unchanged Radiology/Procedures Radiology/Procedures XR CHEST 1V INDICATION: CHEST PAIN COMPARISON STUDY: CT chest 09/15/2020. FINDINGS: Patient is rotated. Lungs: Normal lung volume. No consolidation. Pleura: No pleural effusion or pneumothorax. Heart and Mediastinum: Cardiomegaly. Tortuous thoracic aorta. IMPRESSION: No consolidation. Electronically signed by: Eddie Gonzalez MD (09/16/2020 12:48 PM) [id number] Heart Score C/O Chest Pain: Yes HEART Score for Chest Pain: HEART Score for Chest Pain Response (Comments) Value History Moderately Suspicious 1 ECG Nonspecific Repolarizatio 1 Age > 65 2 Risk Factors >3 Risk Factors or Hx CAD 2 Troponin < Normal Limit 0 Total 6 Risk Factors: Risk Factors: DM, Current or recent (<one month) smoker, HTN, HLP, family hist ory of CAD, obesity. Risk Scores: Risk Factors: DM, Current or recent (<one month) smoker, HTN, HLP, family history of CAD, obesity. Course & Med Decision Making Course & Med Decision Making Hypertensive and 88% on RA on arrival. HPI primarily obtained from EMS due to dementia and fact that patient is poor historian, PE unremarkable. ER workup obtained and unremarkable. Nonetheless, during ER visit patient reported reoccurance of chest pain that improved with SL Nitro Patient's and daughter came to bedside and case discussed, they are concerned for discharge home as am I due to fear of adverse cardiac events in high-risk patient with prior CAD and on Xarelto currently for prior PE Dr. Barone was contacted and agreed to need for admission, he accepted patient under his care I updated daughter and on plan of care that included hospital admission and they were amenable. They confirmed patient as DNR status. All questions and concerns addressed prior to hospital admission This patient required critical care. Due to the fact that the patient required a significant amount of one on one physician patient contact time, ordering and review of studies, arranging urgent treatment with development of a management plan, evaluation of patients response to treatment with frequent reassessments, and discussions with other providers this patient required critical care time 50mins Critical care time was indicated due to the inherent instability and/or potential for instability in this patient. The critical care time that is allocated to this patient is above and beyond any time spent on any other billable procedures performed on this patient. Dragon Disclaimer Dragon Disclaimer This electronic medical record was generated, in whole or in part, using a voice recognition dictation system. Departure Departure: Impression: Primary Impression: Chest pain Additional Impressions: Chronic respiratory failure with hypoxia History of pulmonary embolus (PE) Disposition: ADMITTED INPATIENT Admitting Physician: Gray Barone Condition: STABLE Referrals: ROBERT AYALA MD (PCP) Problem Qualifiers JAVI POST DO Sep 16, 2020 12:02
--- NOTE | 2020-09-16 12:51 | RAD ---
XR CHEST 1V INDICATION: CHEST PAIN COMPARISON STUDY: CT chest 09/15/2020. FINDINGS: Patient is rotated. Lungs: Normal lung volume. No consolidation. Pleura: No pleural effusion or pneumothorax. Heart and Mediastinum: Cardiomegaly. Tortuous thoracic aorta. IMPRESSION: No consolidation. Electronically signed by: Eddie Gonzalez MD (09/16/2020 12:48 PM) [id number]
[2020-09-16] MEDS ORDERED: NITROGLYCERIN SUBLINGUAL 0.4 MG BOTTLE OF 25. SL PRN (13:15)
--- NOTE | 2020-09-16 13:51 | EKG ---
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
[2020-09-16 13:52] LABS: BASO % 0 % (0-3); EOS # 0.1 x10^3/uL (0.0-0.7); EOS % 1 % (0-3); HEMATOCRIT 40.4 % (39.0-53.0); HEMOGLOBIN 13.5 g/dL (13.0-17.5); LYMPH # 0.7 x10^3/uL (1.0-4.8); LYMPH % 7 % (24-48); MEAN CORPUSCULAR HEMOGLOBIN 32 pg (25-35); MEAN CORPUSCULAR HGB CONC 34 g/dL (31-37); MEAN CORPUSCULAR VOLUME 95 fL (79-100); MONO # 1.2 x10^3/uL (0.0-1.1); MONO % 11 % (0-9); NEUT % 81 % (31-73); PLATELET COUNT 130 x10^3/uL (140-400); RED BLOOD COUNT 4.24 x10^6/uL (4.30-5.70); RED CELL DISTRIBUTION WIDTH 14.1 % (11.5-14.5)
--- NOTE | 2020-09-16 13:52 | EKG ---
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
[2020-09-16 14:04] LABS: CALCIUM 8.3 mg/dL (8.5-10.1); GFR 70.8; POTASSIUM 3.9 mmol/L (3.5-5.1)
[2020-09-16 14:08] LABS: ALBUMIN 3.2 g/dL (3.4-5.0); TOTAL BILIRUBIN 1.1 mg/dL (0.2-1.0); TOTAL PROTEIN 6.3 g/dL (6.4-8.2)
[2020-09-16 15:30] VITALS: BP 138/65
[2020-09-16] MEDS ORDERED: HYDR-2759 PO (16:36)
[2020-09-16] MEDS ORDERED: [UNRECOGNIZED DRUG - CODE] PO (16:36)
[2020-09-16] MEDS ORDERED: ASCO500C PO (16:36)
[2020-09-16] MEDS ORDERED: CHOL500021 PO (16:36)
[2020-09-16] MEDS ORDERED: DICL20GE TP (16:36)
[2020-09-16] MEDS ORDERED: MEMA10TA PO (16:36)
[2020-09-16] MEDS ORDERED: MULT-326 PO (16:36)
[2020-09-16] MEDS ORDERED: DICLOFENAC SODIUM 1% TOPICAL GEL 100GM TUBE. TP PRN (18:15)
[2020-09-16 19:38] VITALS: BP 128/73
[2020-09-16] MEDS: CITALOPRAM 20 MG TABLET. PO SCH (22:12)
[2020-09-16] MEDS: MEMANTINE 5 MG TABLET. PO SCH (22:12)
[2020-09-16] MEDS: ASCORBIC ACID 500 MG TABLET PO SCH (22:12)
[2020-09-16] MEDS: ACETAMINOPHEN 325 MG TABLET PO PRN (22:12)
[2020-09-16 23:02] VITALS: BP 143/78
[2020-09-17] MEDS: HYDROcodone/APAP 5/325MG 1 TAB TABLET PO PRN ×3 (04:12→17:27)
[2020-09-17 06:01] VITALS: BP 149/75
[2020-09-17] MEDS: CHOLECALCIFEROL (VITAMIN D3) 1,000 UNIT TABLET PO SCH (08:33)
[2020-09-17] MEDS: MULTIVITAMIN with MINERAL TABLET. PO SCH (08:33)
[2020-09-17] MEDS: ASCORBIC ACID 500 MG TABLET PO SCH ×2 (08:33→20:49)
[2020-09-17] MEDS: MEMANTINE 5 MG TABLET. PO SCH ×2 (08:33→20:50)
[2020-09-17 10:57] VITALS: BP 122/68
--- NOTE | 2020-09-17 11:00 | HP ---
ATTENDING PHYSICIAN: Dr. Barone. CHIEF COMPLAINT: Total body ache. HISTORY OF PRESENT ILLNESS: The patient is an 85-year-old gentleman, resident of [facility]. He has fallen. He is profoundly demented. He got out of bed and found on the bathroom commode and was having nonspecific chest wall pain and diffuse myalgias. He was hypoxic, supplemental oxygen was added. He also has chronic back pain. He is admitted for further management. PAST MEDICAL HISTORY: Gleaned from the old chart. He has profound dementia. He has previous hip replacement performed, generalized anxiety. ALLERGIES: He has no recorded drug allergies. CURRENT MEDICATIONS: Include the following: He was on scheduled Tylenol, vitamin C, cholecalciferol, Celexa, Voltaren gel, hydrocodone p.r.n., Namenda, multivitamin, Xarelto and calcium. FAMILY HISTORY: Unobtainable. REVIEW OF SYSTEMS: Unobtainable. The patient is profoundly demented and nonverbal. PHYSICAL EXAMINATION: GENERAL: When I saw him, this is an elderly demented male. INITIAL VITAL SIGNS: Showed blood pressure 143/78, pulse is 74 and regular, temperature 98.9 degrees Fahrenheit, oxygen saturation 96% on 2 liters nasal cannula. HEENT: Head is without trauma. Pupils are reactive. Sclerae nonicteric. Oropharynx is clear. NECK: Supple, no bruits. LUNGS: Shallow respiration. CARDIOVASCULAR: Showed regular heart tones. No gallops. ABDOMEN: Soft. EXTREMITIES: Without edema. NEUROLOGIC FINDING: Profound dementia. Cardiac enzymes were below the threshold for coronary ischemia. IMAGING STUDIES: No acute fracture of long bones, pathology was identified. ASSESSMENT: 1. This 85-year-old gentleman [facility]. 2. Profound dementia. 3. Gastroesophageal reflux disease. 4. History of chronic obstructive pulmonary disease. 5. History of pneumonia. PLAN: 1. Admit to the inpatient. 2. Meds reviewed and simplified. 3. We shall minimize his narcotics. 4. I will discuss with family regarding short-term and long-term care. GEOFFREY DR: Elsy TID: [id number] CC: NICO CLEARY MD
[2020-09-17 16:12] VITALS: BP 133/77
[2020-09-17 19:03] VITALS: BP 115/69
[2020-09-17] MEDS: ACETAMINOPHEN 325 MG TABLET PO PRN (20:49)
[2020-09-17] MEDS: CITALOPRAM 20 MG TABLET. PO SCH (20:49)
[2020-09-18 00:10] VITALS: BP 160/53
[2020-09-18] MEDS: HYDROcodone/APAP 5/325MG 1 TAB TABLET PO PRN (05:55)
[2020-09-18] MEDS: MEMANTINE 5 MG TABLET. PO SCH (08:05)
[2020-09-18] MEDS: CHOLECALCIFEROL (VITAMIN D3) 1,000 UNIT TABLET PO SCH (08:05)
[2020-09-18] MEDS: ASCORBIC ACID 500 MG TABLET PO SCH (08:05)
[2020-09-18] MEDS: MULTIVITAMIN with MINERAL TABLET. PO SCH (08:05)
[2020-09-18] MEDS: ACETAMINOPHEN 325 MG TABLET PO PRN (10:33)
--- NOTE | 2020-09-18 12:56 | DS ---
DATE OF DISCHARGE: 09/18/2020 ATTENDING PHYSICIAN: Dr. Barone. FINAL DISCHARGE DIAGNOSES: 1. Acute on chronic respiratory failure, improved. 2. Profound dementia. 3. Frequent falls. No obvious long bone fracture. 4. History of chronic obstructive pulmonary disease. 5. Gastroesophageal reflux disease. HISTORY AND PHYSICAL: The patient is an 85-year-old gentleman from [facility]. He is quite obtunded, falling frequently and sent to the ED for the second time this week. He was admitted for further pain management. PHYSICAL EXAMINATION: Please see the dictated note. PERTINENT LABORATORY AND X-RAY STUDIES: On this admission, his hemoglobin was 13.5 g/dL, white count 11,000. Normal differential. Platelet count slightly diminished at 130,000. Electrolytes within normal range. Creatinine 1.0, 3 sets of cardiac enzymes below the threshold for coronary ischemia. Transaminases are normal. X-rays had been done the day before and were not repeated. COURSE IN THE HOSPITAL: The patient was admitted. Home meds, narcotics held and simplified. Diet was advanced. I had a long discussion with the . She is not ready to talk about hospice at this time. On the third hospital day, he was actually doing better, back to his baseline, awake, less agitated and did not appear in any acute distress. His vital signs showed a blood pressure of 160/50. He was afebrile, oxygen saturation 93% on 2 liters nasal cannula. He has been a DNR per advanced directive. At this time, he is discharged back to [facility]. Their social media marketer will deal with the family in terms of whether hospice is appropriate. I simplified his meds. He will continue his ascorbic acid, Celexa, Voltaren gel, Namenda, multivitamin, Xarelto, Crestor, as scheduled hydrocodone/APAP p.r.n. pain. We held his Tylenol and the cholecalciferol. His prognosis is guarded. He remains a DNR per advanced directives. He was discharged from our hospital in stable condition with explicit drug and followup care. Total discharge time spent [address]: Elsy TID: [id number] CC: NICO CLEARY MD
== END 2020-09-18 11:02 | DRG 205 ==
LOC: ER 11:54 → 1 SOUTH 16:15
PROVIDERS: ADMIT Hospitalist; ATTEND Hospitalist
DX: M94.0 Chondrocostal junction syndrome [Tietze] (principal); J96.21 Acute and chronic respiratory failure with hypoxia; F03.90 Unspecified dementia, unspecified severity, without behavioral disturbance, psychotic disturbance, mood disturbance, and anxiety; F41.1 Generalized anxiety disorder; G89.29 Other chronic pain; J44.9 Chronic obstructive pulmonary disease, unspecified; K21.9 Gastro-esophageal reflux disease without esophagitis; Z66 Do not resuscitate; Z86.711 Personal history of pulmonary embolism; Z87.01 Personal history of pneumonia (recurrent); Z96.649 Presence of unspecified artificial hip joint; F41.9 Anxiety disorder, unspecified
CPT/HCPCS: 36415; 70450; 71045; 71275; 72125; 73070; 73501; 73502; 73562; 80048; 80053; 84484; 85025; 93005; 96374; J3010; 99291-25

== ENCOUNTER 2020-09-21 13:36 | Inpatient (IN) | payer MEDICARE ==
[~2020-09-21] VITALS: Ht 172.7 cm; Wt 69.5 kg
[~2020-09-21 13:36] MED LIST changes: -NITR0.4T22 SL
[2020-09-21 13:53] VITALS: BP 116/65
[2020-09-21] MEDS ORDERED: NITR0.4T22 SL (14:46)
[2020-09-21] MEDS ORDERED: NITROGLYCERIN SUBLINGUAL 0.4 MG BOTTLE OF 25. SL PRN (16:00)
[2020-09-21] MEDS ORDERED: DICLOFENAC SODIUM 1% TOPICAL GEL 100GM TUBE. TP PRN (16:00)
[2020-09-21 16:14] LABS: HEMATOCRIT 37.9 % (39.0-53.0); HEMOGLOBIN 12.8 g/dL (13.0-17.5); RED BLOOD COUNT 4.02 x10^6/uL (4.30-5.70); WHITE BLOOD COUNT 9.2 x10^3/uL (4.0-11.0)
[2020-09-21] MEDS ORDERED: ACETAMINOPHEN 325 MG TABLET PO PRN (16:15)
[2020-09-21 16:27] LABS: ALBUMIN 2.7 g/dL (3.4-5.0); ALBUMIN/GLOBULIN RATIO 0.8 (1.0-1.7); CALCIUM 8.3 mg/dL (8.5-10.1); CREATININE 0.9 mg/dL (0.7-1.3); POTASSIUM 3.9 mmol/L (3.5-5.1); TOTAL BILIRUBIN 0.6 mg/dL (0.2-1.0); TOTAL PROTEIN 5.9 g/dL (6.4-8.2)
[2020-09-21] MEDS: MORPHINE SULFATE 2 MG/ML DISP.SYRIN. IV PRN ×2 (16:51→20:12)
--- NOTE | 2020-09-21 18:18 | HP ---
ADMIT DATE: 09/21/2020 HISTORY OF PRESENT ILLNESS: The patient is an 85-year-old male patient, a resident at [facility] who was noted by the nursing staff to have intractable low back pain, and therefore we arranged for him to have a total body bone scan and that the pain was severe. A decision was made to admit him directly for pain management and obviously to find out the outcome of the bone scan to decide if any other intervention might be necessary. The patient himself is very demented and really does not give any useful information. In fact, he is even unable to specify what the pain is. The patient has fallen at [facility], and he was evaluated extensively in the Emergency Room on 09/15. At that time, he has multiple imaging modalities that included his CT angio of the chest, which showed that there is no pulmonary embolus, moderate bilateral atelectasis, aneurysm of the ascending thoracic aorta. His chest x-ray showed no acute process with mild bibasilar discoid atelectasis, stable. The CT scan of the head and cervical spine showed no acute intracranial process and no acute cervical spine fracture. At that time, he had also hip and pelvic x-ray, which showed that there is diffuse osteopenia, chronic appearing fracture of the right hip joint. No acute fracture identified. Soft tissues are unremarkable. Diffuse osteopenia without acute fracture is seen. Chronic fracture of the right hip joint. The patient is acutely unable to bear weight. CT for further evaluation would be recommended. He has had x-rays of the knee, which showed no acute fracture, moderate bilateral arthropathy. The patient was actually evaluated again on Thursday, 09/16, and again only chest x-ray was done with no evidence of any fracture, and we have arranged for him to have an outpatient bone scan; however, we admitted him directly immediately after he finished the scan itself. PAST MEDICAL HISTORY: Significant for hypertension, hyperlipidemia, peripheral arterial disease, and abdominal aortic aneurysm. Also has history of pulmonary embolism, sleep apnea, gastroesophageal reflux disease as well as dementia. PAST SURGICAL HISTORY: Significant for arthroscopic surgery with the left knee and had surgery. Has also abdominal aortic aneurysm, status post stent repair. He has also left hip fracture as well as right hip fracture. FAMILY HISTORY: Mother had heart problems as an older woman and father of pneumonia after a crush injury. SOCIAL HISTORY: He is currently a resident at [facility]. He does not smoke. He used to be a smoker, quit in 1963. Drinks alcohol occasionally. Does not use any drugs. ALLERGIES: He has no known drug allergies. MEDICATIONS: He is currently on the following medication: He is on rivaroxaban 20 mg once a day, nitroglycerin 0.4 mg sublingually every 5 minutes x 3. He is on diclofenac sodium 1 gram 4 times a day. He is on hydrocodone/APAP 5/325 one tablet every 4 hours. He is on Tylenol 650 mg every 4 hours, citalopram hydrobromide 20 mg at bedtime, Namenda 5 mg p.o. b.i.d., ascorbic acid 500 mg twice a day, cholecalciferol 5000 units once a day, multivitamin with mineral 1 tablet once a day and Crestor 10 mg at bedtime. PHYSICAL EXAMINATION: GENERAL: When I examined him today, he was somewhat pale, cachectic, but not jaundiced, cyanosis or thyromegaly. No jugular venous distention. No lower limb edema. VITAL SIGNS: His heart rate was 69, blood pressure 116/65, his temperature was 98, respiratory rate was 18 and oxygen saturation was 95% on 1 liter of oxygen. HEAD, EYES, EARS, NOSE, AND THROAT: Normocephalic, atraumatic. NECK: Supple. HEART: Showed normal first and second heart sounds, no gallop or murmur. CHEST: Clear to auscultation. No crepitation or rhonchi. ABDOMEN: Scaphoid, soft, nontender. NEUROLOGIC: He is demented without any obvious lateralizing sign. All his cranial nerves intact. He moves upper extremities without difficulty. He is having difficulty moving his lower extremities that induce severe pain. LABORATORY DATA: His lab work showed a white cell count 9200, hemoglobin 13, hematocrit 38, MCV 94 and platelet count of 171,000. Serum sodium was 142, potassium 3.9, chloride 108, bicarbonate 25, anion gap of 10, BUN 16, creatinine 0.9. Estimated GFR was 80 mL per minute. His glucose was 94, calcium was 8.3. Total bilirubin, AST, ALT, alkaline phosphatase were normal. Total protein 5.9, albumin was 2.7. We did actually order a total body bone scan, which basically showed that the patient has a focal area of increased activity seen on the lateral aspect of the right fifth rib, which corresponds to a healed rib fracture seen. The patient's CT angio of the chest; areas of increased activity are seen involving the mid and lower cervical spine, the thoracic spine and scattered throughout the lumbar spine along with both shoulders, both elbows, both hands and feet, both hips and both knee joints and both feet and ankle consistent with areas of degenerative changes. Activity is seen in the proximal right femur, which corresponds to the healing fracture at this region. Increased activity is seen involving the L3 vertebral body, which may reflect a subacute compression fracture. No additional areas of abnormally increased activity seen to suggest evidence of an occult fracture. ASSESSMENT AND PLAN: The patient was admitted for pain management. We will continue with all his other medications. I would probably start him on sequential compression devices for deep vein thrombosis prophylaxis for now as I held his Xarelto and eventually, he would be transferred to [facility] to consult the interventional radiologist for possible vertebroplasty. JULITO DR: Bhupendra TID: [id number]
[2020-09-21 18:23] VITALS: BP 116/69
[2020-09-21 19:53] VITALS: BP 150/71
[2020-09-21] MEDS: ASCORBIC ACID 500 MG TABLET PO SCH (20:12)
[2020-09-21] MEDS: ATORVASTATIN CALCIUM 20 MG TABLET PO SCH (20:12)
[2020-09-21] MEDS: CITALOPRAM 20 MG TABLET. PO SCH (20:12)
[2020-09-21] MEDS: MEMANTINE 5 MG TABLET. PO SCH (20:13)
[2020-09-22] MEDS: HYDROcodone/APAP 5/325MG 1 TAB TABLET PO PRN (02:12)
[2020-09-22 07:47] VITALS: BP 171/78
[2020-09-22] MEDS: MEMANTINE 5 MG TABLET. PO SCH ×2 (07:48→22:48)
[2020-09-22] MEDS: CHOLECALCIFEROL (VITAMIN D3) 1,000 UNIT TABLET PO SCH (07:49)
[2020-09-22] MEDS: MORPHINE SULFATE 2 MG/ML DISP.SYRIN. IV PRN ×3 (07:49→22:47)
[2020-09-22] MEDS: ASCORBIC ACID 500 MG TABLET PO SCH ×2 (07:49→22:46)
[2020-09-22] MEDS: MULTIVITAMIN with MINERAL TABLET. PO SCH (07:49)
[2020-09-22] MEDS: ENOXAPARIN 40 MG/0.4 ML SYRINGE. SQ SCH (12:00)
[2020-09-22 19:00] VITALS: BP 166/84
--- NOTE | 2020-09-22 20:55 | PN ---
DATE: 09/22/2020 SUBJECTIVE: The patient is resting, slightly propped up in bed, no apparent distress. He apparently is more awake, alert, has eaten his breakfast, continued to have pain mostly in his right hip and his back. He continues to keep his right hip in fixed flexion contraction. PHYSICAL EXAMINATION: GENERAL: When I examined him, he looked well and was clearly in no apparent respiratory distress. No pallor, jaundice, or cyanosis. No thyromegaly. No jugular venous distention, no lower limb edema. VITAL SIGNS: His heart rate was 57, blood pressure is 171/78, temperature was 98.4, respiratory rate was 18 and oxygen saturation was 92% on room air. HEAD, EYES, EARS, NOSE AND THROAT: Normocephalic, atraumatic. NECK: Supple. HEART: Showed normal first and second heart sounds, no gallop, rub or murmur. CHEST: Clear to auscultation, no crepitation or rhonchi. ABDOMEN: Distended, soft, nontender. NEUROLOGIC: He was demented, but without any obvious lateralizing sign. His intake and output incompletely recorded. LABORATORY DATA: As of yesterday, his white cell count was 9200, hemoglobin 13, hematocrit 38, MCV 94 and platelet count of 171,000. His chemistry showed a serum sodium 142, potassium 3.9, chloride 108, bicarbonate 25, anion gap of 10, BUN 16, creatinine 0.9. Estimated GFR was 80 mL per minute. Glucose was 94, calcium was 8.3. Total bilirubin, AST, ALT, alkaline phosphatase were normal. Total protein was 5.9, albumin was 2.7. ASSESSMENT: Intractable low back pain with the bone scan showing L3 compression fracture. He has also increased activity around his right hip fracture whether this is new or just indicating continuing healing process I am not really sure. The patient has multiple other medical problems including: A. Hypertension. B. Hyperlipidemia. C. Peripheral arterial disease. D. Abdominal aortic aneurysm. E. History of pulmonary embolism. F. Obstructive sleep apnea. G. Gastroesophageal reflux disease. H. Dementia. PLAN: My plan is to continue with all his medication. Continue with pain management. Continue with DVT prophylaxis. I will start him on SCDs and we transferred him tomorrow to [facility] to consult Dr. Ny for to see if he is a candidate for vertebroplasty. He was on Xarelto; however, I will continue holding that and start him on Lovenox for now. BERNARDO/MARICARMEN DR: Bhupendra TID: [id number]
[2020-09-22] MEDS: CITALOPRAM 20 MG TABLET. PO SCH (22:47)
[2020-09-22] MEDS: ATORVASTATIN CALCIUM 20 MG TABLET PO SCH (22:47)
[2020-09-23] MEDS: MORPHINE SULFATE 2 MG/ML DISP.SYRIN. IV PRN (03:50)
[2020-09-23 06:41] VITALS: BP 153/78
[2020-09-23 07:51] LABS: HEMATOCRIT 39.4 % (39.0-53.0); HEMOGLOBIN 13.3 g/dL (13.0-17.5); RED BLOOD COUNT 4.14 x10^6/uL (4.30-5.70); WHITE BLOOD COUNT 6.1 x10^3/uL (4.0-11.0)
[2020-09-23] MEDS: CHOLECALCIFEROL (VITAMIN D3) 1,000 UNIT TABLET PO SCH (08:26)
[2020-09-23] MEDS: MEMANTINE 5 MG TABLET. PO SCH (08:26)
[2020-09-23] MEDS: HYDROcodone/APAP 5/325MG 1 TAB TABLET PO PRN ×2 (08:26→14:39)
[2020-09-23] MEDS: ASCORBIC ACID 500 MG TABLET PO SCH (08:26)
[2020-09-23] MEDS: MULTIVITAMIN with MINERAL TABLET. PO SCH (08:26)
--- NOTE | 2020-09-23 11:07 | DS ---
DATE OF DISCHARGE: 09/23/2020 HOSPITAL COURSE: The patient is an 85-year-old male patient who was admitted directly from [facility]. He fell on 09/15 and apparently had been having severe pain in his back and had been unable to walk and so we did actually a bone scan that basically showed that he had increased activity involving the L3 vertebral body, which may reflect subacute compression fracture. He also had increased activity seen on the lateral aspect of the right fifth rib which corresponds to healing or healed rib fracture seen on the patient's CT angio of the chest, areas of increased activity seen involving mid and lower cervical spine, the thoracic spine and scattered throughout the lumbar spine along with both shoulders, both elbows, both hands and feet, both hips, both knees and both feet and ankles consistent with areas of degenerative changes. Activity seen in the proximal right femur, which corresponds to the healing fracture in this region. Increased activity seen involving the L3 vertebral body. Given the patient had severe pain, a decision was made to transfer him to [facility] to consult the interventional radiologist to see if he qualifies for vertebroplasty. I also consulted the orthopedic surgeon to see whether it is usual for the bone scan to see increased activity 3 months later given that he is having also pain in that area as his surgery done on his right hip on 06/06/2020. PHYSICAL EXAMINATION: GENERAL: On examining him today, he looked well and was clearly in no apparent respiratory distress. There was no pallor, jaundice or cyanosis. No thyromegaly. No jugular distention. No lower limb edema. VITAL SIGNS: His heart rate was 64, blood pressure 153/78, temperature was 98.2, respiratory rate was 20 and oxygen saturation was 94% on 1 L of oxygen. HEAD, EYES, EARS, NOSE AND THROAT: Normocephalic, atraumatic. NECK: Supple. HEART: Showed normal first and second heart sounds. No gallop or murmur. CHEST: Clear to auscultation. No crepitation or rhonchi. ABDOMEN: Scaphoid, soft, nontender. NEUROLOGIC: He is demented, but without any obvious lateralizing sign. All his cranial nerves are intact. He moves upper extremities without difficulty. He has a fixed flexion contraction of his right hip joint. His intake was 660, no output was recorded. LABORATORY DATA: His lab work this morning showed a white cell count 6100, hemoglobin 13.3, hematocrit 39, MCV 95 and platelets 199,000. His chemistry is still pending at time of this dictation. As of yesterday, serum sodium 142, potassium 3.9, chloride 108, bicarbonate 25, anion gap of 10, BUN 16, creatinine 0.9. Estimated GFR was 80 mL per minute. His glucose was 94, calcium was 8.3. Total bilirubin, AST, ALT, alkaline phosphatase were normal. Total protein 5.9, albumin 2.7. DISCHARGE MEDICATIONS: He was discharged to continue on his morphine sulfate 2 mg IV every 3 hours, hydrocodone/APAP 5/325 one tablet every 4 hours, citalopram hydrobromide 20 mg at bedtime, Namenda 5 mg twice a day, ascorbic acid 500 mg twice a day, atorvastatin 40 mg at bedtime, vitamin D 5000 unit once a day, multivitamin 1 tablet once a day and Lovenox 40 mg subq once a day. DISCHARGE DIAGNOSES: 1. Intractable back pain with L3 compression fracture. 2. Question proximal right femur fracture. OTHER MEDICAL PROBLEMS: Include hypertension, hyperlipidemia, peripheral arterial disease, abdominal aortic aneurysm, pulmonary embolism, sleep apnea, gastroesophageal reflux disease and advanced dementia. ARLETTE DR: Bhupendra TID: [id number]
[2020-09-23] MEDS: ENOXAPARIN 40 MG/0.4 ML SYRINGE. SQ SCH (12:00)
[2020-09-23 13:16] LABS: ALBUMIN 2.8 g/dL (3.4-5.0); ALBUMIN/GLOBULIN RATIO 0.8 (1.0-1.7); CALCIUM 8.4 mg/dL (8.5-10.1); GFR 70.8; TOTAL BILIRUBIN 0.7 mg/dL (0.2-1.0); TOTAL PROTEIN 6.1 g/dL (6.4-8.2)
== END 2020-09-23 16:21 | disposition short-term general hospital (02) | DRG 542 ==
LOC: 1 SOUTH 13:36
PROVIDERS: ADMIT Internal Medicine; ATTEND Internal Medicine
DX: M48.56XA Collapsed vertebra, not elsewhere classified, lumbar region, initial encounter for fracture (principal); E43 Unspecified severe protein-calorie malnutrition; E78.5 Hyperlipidemia, unspecified; I10 Essential (primary) hypertension; K21.9 Gastro-esophageal reflux disease without esophagitis; I73.9 Peripheral vascular disease, unspecified; G47.33 Obstructive sleep apnea (adult) (pediatric); F03.90 Unspecified dementia, unspecified severity, without behavioral disturbance, psychotic disturbance, mood disturbance, and anxiety; Z86.711 Personal history of pulmonary embolism; Z87.891 Personal history of nicotine dependence; Z68.23 Body mass index [BMI] 23.0-23.9, adult; Z87.81 Personal history of (healed) traumatic fracture
CPT/HCPCS: 36415; 78306; 80053; 85027; A9503; J1650; J2270

== ENCOUNTER → 2020-09-21 | Outpatient (CLI) | payer MEDICARE ==
[2020-09-18 00:10] VITALS: BP 160/53
[~2020-09-21] MED LIST changes: +ASCO500C PO; +CHOL500021 PO; +DICL20GE TP; +HYDR-2759 PO; +MEMA10TA PO; +MULT-326 PO; +NITR0.4T22 SL; +[UNRECOGNIZED DRUG - CODE] PO
--- NOTE | 2020-09-21 16:19 | RAD ---
Bone scan 09/21/2020 CLINICAL HISTORY: History of recent falls. Spine and right hip pain. Dementia. TECHNIQUE: 3 hours after intravenous administration of 21.4 mCi of technetium 99m MDP, whole body qing ging of the axial and appendicular skeleton was performed using the gamma camera. FINDINGS: Comparison is made to a CTA scan of the chest dated 09/15/2020. Additional comparison is mad e to radiographs of the right hip dated 09/15/2020. A focal area of increased activity is seen on the lateral aspect of the right fifth rib which corresp onds to a healing/healed rib fracture seen on the patient's CTA of the chest. Areas of increased acti vity are seen involving the mid and lower cervical spine, the thoracic spine and scattered throughout the lumbar spine along with both shoulders, both elbows, both hands and feet, both hips, both knees and both feet and ankles consistent with areas of degenerative change. Activity is seen in the proxim al right femur which corresponds to the healing fracture in this region. Increased activity is seen i nvolving the L3 vertebral body which may reflect a subacute compression fracture. No additional area of abnormally increased activity is seen to suggest evidence of an occult fracture. IMPRESSION: Increased activity is seen involving the L3 vertebral body which may reflect a subacute c ompression fracture as discussed above. Electronically signed by: Phan Lopez MD (09/21/2020 4:16 PM) [id number]
== END ==
LOC: NM 08:58
PROVIDERS: ATTEND Internal Medicine
DX: S32.038A Other fracture of third lumbar vertebra, initial encounter for closed fracture (principal); X58.XXXA Exposure to other specified factors, initial encounter; Y93.89 Activity, other specified; Y92.89 Other specified places as the place of occurrence of the external cause; Y99.8 Other external cause status
CPT/HCPCS: 78306; A9503

== ENCOUNTER → 2020-12-21 | Outpatient (CLI) | payer MEDICARE ==
[~2020-12-21] MED LIST changes: +NITR0.4T22 SL
--- NOTE | 2020-12-21 15:51 | RAD ---
Right hip 2 views. HISTORY: Hip pain, guarding right hip AP view was taken of the pelvis with a lateral view of the right hip. Comparison is made with a study from September 15. There is an aortic stent in place. An acute pelvic fracture is not identified. There i s an old left hip fracture with an intramedullary gita and hip nails. 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 There is an old right hip fracture with an intramedullary gita and hip nail. Hardware is unchanged com pared to the study from September. There is callus formation about the old fracture. There is been no lake ge in the alignment or position. An acute fracture is not identified. IMPRESSION: 1. Old bilateral rib fractures. 2. No definite change compared to the studies from September. 3. No new hip fracture noted. 4. No acute acute pelvic fracture noted Electronically signed by: Ced Elliott MD (12/21/2020 3:49 PM) [id number]
== END ==
LOC: RAD 11:34
PROVIDERS: ATTEND Physician Assistant
DX: L84 Corns and callosities (principal); M25.551 Pain in right hip; Z96.641 Presence of right artificial hip joint; Z95.2 Presence of prosthetic heart valve
CPT/HCPCS: 73501; 73502